=== PATIENT | female | born 1945 | race African-American/Black ===

== ENCOUNTER 2024-04-15 09:23 | Emergency (ER) | payer MEDICARE ==
[~2024-04-15] VITALS: Ht 162.6 cm; Wt 63.6 kg
[2024-04-15 09:31] VITALS: BP 163/85; PULSE 98; RESP 18; TEMP 98; O2SAT 99
[2024-04-15] MEDS ORDERED: DONE-51 PO (09:40)
[2024-04-15] MEDS ORDERED: ROSU10TA72 PO (09:40)
[2024-04-15] MEDS ORDERED: HYDR-4527 PO (09:40)
[2024-04-15] MEDS ORDERED: AMLO1CAP2 PO (09:40)
[2024-04-15] MEDS ORDERED: BIMA2.5D4 OU (09:40)
[2024-04-15] MEDS ORDERED: MEMA10TA24 PO (09:40)
[2024-04-15 10:07] LABS: BASOPHILS % (AUTO) 0.5 % (0.0-2.0); EOSINOPHILS % (AUTO) 2.3 % (1.0-6.0); HEMATOCRIT 39.7 % (36-46); HEMOGLOBIN 12.9 g/dL (12.0-16.0); LYMPHOCYTES # (AUTO) 1.6 K/uL (1.0-4.8); LYMPHOCYTES % (AUTO) 33.9 % (22.0-44.0); MEAN CORPUSCULAR HEMOGLOBIN 27.8 pg (26.0-34.0); MEAN CORPUSCULAR HGB CONC 32.4 G/dL (31.0-37.0); MEAN CORPUSCULAR VOLUME 86 fL (80-100); MONOCYTES # (AUTO) 0.6 K/uL (0.1-1.0); MONOCYTES % (AUTO) 12.8 % (2.0-9.0); NEUTROPHILS # (AUTO) 2.3 K/uL (1.8-7.7); NEUTROPHILS % (AUTO) 50.5 % (40.0-70.0); PLATELET COUNT (AUTO) 322 K/uL (150-450); RED BLOOD CELL COUNT(AUTO) 4.64 MIL/uL (4.00-5.20); RED CELL DISTRIBUTION WIDTH 15.4 % (11.5-14.5); WHITE BLOOD COUNT (AUTO) 4.6 K/uL (4.5-11.0)
[2024-04-15 10:15] LABS: ANION GAP 6 mmol/L (8-16); CALCIUM, TOTAL 9.2 mg/dL (8.8-10.5); CARBON DIOXIDE 31 mmol/L (22-29); CHLORIDE 106 mmol/L (98-107); GLOMERULAR FILTR. RATE CALC > 60 mL/min (>60); GLUCOSE,RANDOM 102 mg/dL (70-110); POTASSIUM 3.7 mmol/L (3.5-5.1); SODIUM SERUM 143 mmol/L (136-145); UREA NITROGEN, BLOOD 12 mg/dL (7-18)
[2024-04-15 10:18] LABS: ALBUMIN 3.2 g/dL (3.4-5.0); BILIRUBIN,DIRECT 0.1 mg/dL (0.00-0.20); BILIRUBIN,TOTAL 0.3 mg/dL (0.1-1.0); TOTAL PROTEIN, SERUM 8.2 g/dL (6.4-8.2)
[2024-04-15] MEDS: ACETAMINOPHEN 325 MG TABLET PO ONE (10:21)
[2024-04-15 10:25] LABS: CREATINE KINASE, TOTAL ONLY 67 U/L (26-192); LIPASE 23 U/L (16-77); TROPONIN I-HIGH SENSITIVITY 18 ng/L (<51)
[2024-04-15 10:36] LABS: COVID AG,FIA SOURCE NASAL SWAB
[2024-04-15 10:50] LABS: APPEARANCE,URINE CLEAR (CLEAR); BILIRUBIN,URINE NEGATIVE (NEGATIVE); COLOR,URINE COLORLESS (YELLOW); GLUCOSE, URINE (UA) NEGATIVE (NEGATIVE); KETONES,URINE NEGATIVE (NEGATIVE); LEUKOCYTE ESTERASE ,URINE NEGATIVE (NEGATIVE); NITRATE,URINE NEGATIVE (NEGATIVE); OCCULT BLOOD,URINE NEGATIVE (NEGATIVE); PH,URINE 6.5 (5.0-8.0); PROTEIN,URINE NEGATIVE (NEGATIVE); SPECIFIC GRAVITIY, URINE 1.009 (1.003-1.030); UROBILINOGEN,URINE <=1.0 mg/dL (<=1.0)
[2024-04-15 10:54] LABS: SARS-COV2 (COVID) ANTIGEN,FIA Negative (Negative)
[2024-04-15 10:55] LABS: INFLUENZA TYPE A NEGATIVE FOR TYPE A (NEGATIVE); INFLUENZA TYPE B NEGATIVE FOR TYPE B (NEGATIVE)
[2024-04-15 10:56] LABS: B-TYPE NATRIURETIC PEPTIDE 53 pg/mL (0-100)
== END 2024-04-15 11:18 | disposition home or self-care (01) ==
LOC: EMS 09:44
DX: R10.84 Generalized abdominal pain (principal); F03.90 Unspecified dementia, unspecified severity, without behavioral disturbance, psychotic disturbance, mood disturbance, and anxiety; E78.00 Pure hypercholesterolemia, unspecified; I10 Essential (primary) hypertension; Z79.899 Other long term (current) drug therapy; Z20.822 Contact with and (suspected) exposure to COVID-19
CPT/HCPCS: 71045; 80048; 80076; 81003; 82550; 83690; 83880; 84484; 85025; 87804; 93005; 99284; 36415-L1; 36415-TC

== ENCOUNTER 2024-07-26 14:20 | Inpatient (IN) | payer MEDICARE ==
[~2024-07-26] VITALS: Ht 162.6 cm; Wt 68.3 kg
[~2024-07-26 14:20] MED LIST: AMLO1CAP2 PO; BIMA2.5D4 OU; DONE-51 PO; HYDR25TA83 PO; MEMA10TA24 PO; ROSU10TA72 PO
[2024-07-26] MEDS ORDERED: 0.9% SODIUM CHLORIDE 10 ML SYRINGE IVP PRN (19:45)
[2024-07-26 20:15] LABS: BASOPHILS % (AUTO) 0.4 % (0.0-2.0); EOSINOPHILS % (AUTO) 0.5 % (1.0-6.0); HEMATOCRIT 40.6 % (36-46); HEMOGLOBIN 13.4 g/dL (12.0-16.0); LYMPHOCYTES # (AUTO) 1.6 K/uL (1.0-4.8); LYMPHOCYTES % (AUTO) 15.8 % (22.0-44.0); MEAN CORPUSCULAR HEMOGLOBIN 27.1 pg (26.0-34.0); MEAN CORPUSCULAR VOLUME 82 fL (80-100); MONOCYTES % (AUTO) 9.4 % (2.0-9.0); NEUTROPHILS # (AUTO) 7.6 K/uL (1.8-7.7); NEUTROPHILS % (AUTO) 73.9 % (40.0-70.0); PLATELET COUNT (AUTO) 257 K/uL (150-450); RED BLOOD CELL COUNT(AUTO) 4.95 MIL/uL (4.00-5.20); RED CELL DISTRIBUTION WIDTH 16.4 % (11.5-14.5); WHITE BLOOD COUNT (AUTO) 10.3 K/uL (4.5-11.0)
[2024-07-26 20:25] LABS: ANION GAP 9 mmol/L (8-16); CALCIUM, TOTAL 9.4 mg/dL (8.8-10.5); CARBON DIOXIDE 29 mmol/L (22-29); CHLORIDE 103 mmol/L (98-107); CREATININE 1.04 mg/dL (0.60-1.30); GLOMERULAR FILTR. RATE CALC > 60 mL/min (>60); GLUCOSE,RANDOM 106 mg/dL (70-110); POTASSIUM 3.4 mmol/L (3.5-5.1); SODIUM SERUM 141 mmol/L (136-145); UREA NITROGEN, BLOOD 11 mg/dL (7-18)
[2024-07-26 20:27] LABS: PROTHROMBIN TIME 10.9 SEC (9.4-11.6)
[2024-07-26] MEDS: CefTRIAXone 1 GM/DEXTROSE 50 ML IV ONE (20:31)
[2024-07-26] MEDS: SODIUM CHLORIDE 0.9% 1,350 ML IV ONE (20:31)
[2024-07-26 20:35] LABS: LACTIC ACID 1.5 mmol/L (0.4-2.0)
[2024-07-26 21:37] LABS: APPEARANCE,URINE HAZY (CLEAR); BILIRUBIN,URINE NEGATIVE (NEGATIVE); COLOR,URINE LIGHT YELLOW (YELLOW); GLUCOSE, URINE (UA) NEGATIVE (NEGATIVE); KETONES,URINE NEGATIVE (NEGATIVE); LEUKOCYTE ESTERASE ,URINE NEGATIVE (NEGATIVE); NITRATE,URINE NEGATIVE (NEGATIVE); OCCULT BLOOD,URINE NEGATIVE (NEGATIVE); PROTEIN,URINE NEGATIVE (NEGATIVE); SPECIFIC GRAVITIY, URINE 1.011 (1.003-1.030); UROBILINOGEN,URINE <=1.0 mg/dL (<=1.0)
[2024-07-26] MEDS: *CLINICAL-LEVOFLOXACIN IVPB DOSING CLINICAL ONE (23:57)
[2024-07-27] VITALS (7 sets, daily range): BP systolic 128–174; BP diastolic 74–101; PULSE 80–118; RESP 16–19; TEMP 97.7–98.8; O2SAT 97–100
[2024-07-27] MEDS ORDERED: MORPHINE SULFATE 2 MG/ML SYRINGE IVP PRN
[2024-07-27] MEDS ORDERED: HYDROCODONE/ACETAMINOPHEN 5-325 MG TABLET PO PRN
[2024-07-27] MEDS ORDERED: MAGNESIUM HYDROXIDE SUSPENSION 30 ML UDCUP PO PRN
[2024-07-27] MEDS ORDERED: ONDANSETRON HCL 4 MG/2 ML VIAL IVP PRN
[2024-07-27] MEDS ORDERED: BISACODYL 10 MG RECTAL RECTAL SUPPOSITORY PR PRN
[2024-07-27] MEDS: ACETAMINOPHEN 325 MG TABLET PO PRN (01:25)
[2024-07-27] MEDS: HEPARIN SODIUM,PORCINE 5,000 UNITS/ML VIAL SQ SCH (01:25)
[2024-07-27] MEDS: SODIUM CHLORIDE 0.9% 1,000 ML IV ONE (01:31)
[2024-07-27] MEDS: LEVOFLOXACIN 750 MG/D5% WATER 150 ML IV SCH (01:32)
[2024-07-27] MEDS ORDERED: DORZ10DR10 OU (02:31)
[2024-07-27] MEDS ORDERED: POTASSIUM CHL 10 MEQ/WATER 50 ML IV ONE (04:30)
[2024-07-27] MEDS: CloNIDine HCL 0.1 MG TABLET PO ONE (05:05)
[2024-07-27] MEDS: POTASSIUM CHL 10 MEQ/WATER 50 ML IV SCH (05:05)
[2024-07-27] MEDS: DOCUSATE SODIUM 100 MG CAPSULE PO SCH (09:42)
[2024-07-27] MEDS: BENAZEPRIL HCL 20 MG TABLET PO SCH (09:42)
[2024-07-27] MEDS: PANTOPRAZOLE SODIUM 40 MG DR TABLET PO SCH (09:43)
[2024-07-27] MEDS: AmLODIPine BESYLATE 10 MG TABLET PO SCH (09:43)
[2024-07-27] MEDS: ROSUVASTATIN CALCIUM 10 MG TABLET PO SCH (09:43)
[2024-07-27] MEDS: MEMANTINE HCL 10 MG TABLET PO SCH (10:33)
[2024-07-27] MEDS: ZOLPIDEM TARTRATE 5 MG TABLET PO PRN (20:47)
[2024-07-27] MEDS: DONEPEZIL HCL 10 MG TABLET PO SCH (20:47)
[2024-07-28] VITALS (7 sets, daily range): BP systolic 95–154; BP diastolic 67–94; PULSE 71–125; RESP 16–19; TEMP 97.5–98.8; O2SAT 98–100
[2024-07-28 07:39] LABS: BASOPHILS % (AUTO) 0.4 % (0.0-2.0); EOSINOPHILS % (AUTO) 3.6 % (1.0-6.0); HEMATOCRIT 39.1 % (36-46); HEMOGLOBIN 12.9 g/dL (12.0-16.0); LYMPHOCYTES # (AUTO) 1.6 K/uL (1.0-4.8); MEAN CORPUSCULAR HEMOGLOBIN 27.4 pg (26.0-34.0); MEAN CORPUSCULAR HGB CONC 33.1 G/dL (31.0-37.0); MEAN CORPUSCULAR VOLUME 83 fL (80-100); MONOCYTES % (AUTO) 17.9 % (2.0-9.0); NEUTROPHILS # (AUTO) 2.9 K/uL (1.8-7.7); NEUTROPHILS % (AUTO) 50.1 % (40.0-70.0); PLATELET COUNT (AUTO) 221 K/uL (150-450); RED BLOOD CELL COUNT(AUTO) 4.73 MIL/uL (4.00-5.20); RED CELL DISTRIBUTION WIDTH 16.2 % (11.5-14.5); WHITE BLOOD COUNT (AUTO) 5.8 K/uL (4.5-11.0)
[2024-07-28 07:45] LABS: ANION GAP 8 mmol/L (8-16); CARBON DIOXIDE 26 mmol/L (22-29); CHLORIDE 108 mmol/L (98-107); CREATININE 1.03 mg/dL (0.60-1.30); GLOMERULAR FILTR. RATE CALC > 60 mL/min (>60); GLUCOSE,RANDOM 84 mg/dL (70-110); POTASSIUM 3.2 mmol/L (3.5-5.1); SODIUM SERUM 142 mmol/L (136-145); UREA NITROGEN, BLOOD 14 mg/dL (7-18)
[2024-07-28] MEDS ORDERED: POTASSIUM CHL 10 MEQ/WATER 50 ML IV PRN (11:30)
[2024-07-28] MEDS: POTASSIUM CHLORIDE 20 MEQ ER TABLET PO PRN (11:47)
[2024-07-28] MEDS: MAGNESIUM OXIDE 400 MG TABLET PO ONE (21:09)
[2024-07-29] VITALS: TEMP 98.2
[2024-07-29 03:25] VITALS: BP 140/87; PULSE 90; RESP 17; TEMP 98.2; O2SAT 98
[2024-07-29 06:39] LABS: BASOPHILS % (AUTO) 0.2 % (0.0-2.0); EOSINOPHILS % (AUTO) 0.6 % (1.0-6.0); HEMOGLOBIN 12.6 g/dL (12.0-16.0); LYMPHOCYTES # (AUTO) 1.6 K/uL (1.0-4.8); LYMPHOCYTES % (AUTO) 21.3 % (22.0-44.0); MEAN CORPUSCULAR HEMOGLOBIN 27.4 pg (26.0-34.0); MEAN CORPUSCULAR HGB CONC 33.1 G/dL (31.0-37.0); MEAN CORPUSCULAR VOLUME 83 fL (80-100); MONOCYTES % (AUTO) 13.2 % (2.0-9.0); NEUTROPHILS # (AUTO) 4.9 K/uL (1.8-7.7); NEUTROPHILS % (AUTO) 64.7 % (40.0-70.0); PLATELET COUNT (AUTO) 221 K/uL (150-450); RED BLOOD CELL COUNT(AUTO) 4.58 MIL/uL (4.00-5.20); WHITE BLOOD COUNT (AUTO) 7.5 K/uL (4.5-11.0)
[2024-07-29 06:51] LABS: CALCIUM, TOTAL 9.5 mg/dL (8.8-10.5); CREATININE 1.35 mg/dL (0.60-1.30); POTASSIUM 3.6 mmol/L (3.5-5.1)
[2024-07-29 07:46] VITALS: BP 139/91; PULSE 84; RESP 18; TEMP 97.7; O2SAT 100
[2024-07-29] MEDS: levoFLOXacin 750 MG TABLET PO SCH (08:24)
[2024-07-29] MEDS: AmLODIPine BESYLATE 10 MG TABLET PO SCH (08:32)
[2024-07-29] MEDS ORDERED: LEVO750T68 PO (11:07)
[2024-07-29 11:27] VITALS: BP 136/81; PULSE 94; RESP 18; TEMP 98.1; O2SAT 98
[2024-07-29 15:54] VITALS: BP 107/73; PULSE 92; RESP 18; TEMP 97.7; O2SAT 97
== END 2024-07-29 16:15 | disposition home health service (06) | DRG 872 ==
LOC: EMS 14:20 → EDH 23:50 → 5S 07-27 03:20
PROVIDERS: ADMIT Internal Medicine; ATTEND Internal Medicine
DX: A41.9 Sepsis, unspecified organism (principal); N39.0 Urinary tract infection, site not specified; I10 Essential (primary) hypertension; F03.90 Unspecified dementia, unspecified severity, without behavioral disturbance, psychotic disturbance, mood disturbance, and anxiety; H40.9 Unspecified glaucoma; E87.6 Hypokalemia; E86.0 Dehydration; E78.00 Pure hypercholesterolemia, unspecified; Z79.899 Other long term (current) drug therapy
CPT/HCPCS: 71045; 80048; 81003; 83605; 83735; 84132; 84145; 85025; 85610; 87040; 92610; 93005; 97162; 97166; 97530; 97535; 99285; G0378; J0696; J1644; J1956; J3480; J7030; 36415-L1; 36415-TC